=== PATIENT | male | born 1950 | race Caucasian/White ===

== ENCOUNTER → 2024-11-10 15:02 | Outpatient (REF) | payer MEDICARE, SELFPAY | LOC: RAD 15:02 | PROVIDERS: ATTENDING PHYSICIAN Internal Medicine; OTHER PHYSICIAN Internal Medicine Pulmonary Disease; REFERRING PHYSICIAN Internal Medicine Interventional Cardiology | DX: R06.09 Other forms of dyspnea (principal) | CPT/HCPCS: 71046 ==